=== PATIENT | female | born 1965 | race Caucasian/White ===

== ENCOUNTER 2020-08-14 11:05 | Emergency (ER) | payer SELFPAY ==
[~2020-08-14] VITALS: Ht 167.6 cm; Wt 90.7 kg
[2020-08-14 12:18] LABS: BASOPHILS % (AUTO) 0.5 % (0.0-5.0); EOSINOPHILS % (AUTO) 2.5 % (0.0-8.0); HEMATOCRIT 37.4 % (36-48); LYMPHOCYTES % (AUTO) 30.8 % (21.0-51.0); MEAN CORPUSCULAR HEMOGLOBIN 32.5 pg (27.0-33.0); MEAN CORPUSCULAR HGB CONC 32.9 g/dL (32.0-36.0); MEAN CORPUSCULAR VOLUME 98.9 fL (79-99); NEUTROPHILS % (AUTO) 57.7 % (40.0-77.0); PLATELET COUNT (AUTO) 146 K/uL (130-400); RED BLOOD CELL COUNT(AUTO) 3.78 MIL/uL (4.00-5.50); RED CELL DISTRIBUTION WIDTH 12.7 % (11.0-15.5); WHITE BLOOD COUNT (AUTO) 6.5 K/uL (4.8-10.8)
[2020-08-14 12:35] LABS: INR 1.1 (0.85-1.15); PROTHROMBIN TIME 11.9 SEC (9.6-11.6)
[2020-08-14 12:36] LABS: CARBON DIOXIDE 25 mmol/L (21-32); CHLORIDE 102 mmol/L (101-111); GLOMERULAR FILTR. RATE CALC 61 mL/min (>60); GLUCOSE,RANDOM 133 mg/dL (70-105); PARTIAL THROMBOPLASTIN TIME 25.6 SEC (26.3-35.5); POTASSIUM 4.4 mmol/L (3.5-5.1); SODIUM SERUM 139 mmol/L (136-145); UREA NITROGEN, BLOOD 13 mg/dL (7-18)
[2020-08-14 12:54] LABS: ALANINE AMINOTRANSFERASE 147 U/L (12-78); ALBUMIN 3.6 g/dL (3.5-5.0); ASPARTATE AMINOTRANSFERASE 154 U/L (10-37); BILIRUBIN,TOTAL 0.4 mg/dL (0.2-1.0); CREATINE KINASE, TOTAL 62 U/L (21-232); MYOGLOBIN 26 ng/mL (10-92); TOTAL PROTEIN, SERUM 8.2 g/dL (6.0-8.3); TROPONIN I < 0.04 ng/mL (0.00-0.06)
[2020-08-14 13:00] VITALS: BP 124/81
[2020-08-14] MEDS ORDERED: NAPR-1180 PO (13:30)
[2020-08-14] MEDS ORDERED: CYCL10 PO (13:30)
[2020-08-14] MEDS ORDERED: ALBU8.5H8 IH (13:30)
== END 2020-08-14 13:45 | disposition home or self-care (01) ==
LOC: EDH 11:05
DX: M94.0 Chondrocostal junction syndrome [Tietze] (principal); R06.02 Shortness of breath; I10 Essential (primary) hypertension; E78.5 Hyperlipidemia, unspecified; Z88.0 Allergy status to penicillin
CPT/HCPCS: 36415; 71045; 80053; 82550; 83874; 84484; 85025; 85610; 85730; 93005

== ENCOUNTER 2021-08-11 14:23 | Emergency (ER) | payer OTHER, SELFPAY ==
[~2021-08-11] VITALS: Ht 167.6 cm; Wt 89.8 kg
[~2021-08-11 14:23] MED LIST: ALBU8.5H8 IH; CYCL10TA16 PO; NAPR-1180 PO
[2021-08-11 14:25] VITALS: BP 139/74
[2021-08-11] MEDS ORDERED: KETOROLAC 30MG VIAL (30MG/ML) IM ONE (15:30)
[2021-08-11] MEDS ORDERED: IBUP-2070 PO (16:33)
[2021-08-11] MEDS ORDERED: PRED20TA3 PO (16:33)
[2021-08-11] MEDS ORDERED: PREDNISONE 20 MG TABLET PO ONE (17:00)
== END 2021-08-11 16:55 | disposition home or self-care (01) ==
LOC: EDH 14:23
DX: M25.511 Pain in right shoulder (principal); I48.91 Unspecified atrial fibrillation; E78.00 Pure hypercholesterolemia, unspecified; I10 Essential (primary) hypertension; Z88.0 Allergy status to penicillin; Z79.899 Other long term (current) drug therapy; W01.0XXA Fall on same level from slipping, tripping and stumbling without subsequent striking against object, initial encounter; Y93.89 Activity, other specified; Y92.89 Other specified places as the place of occurrence of the external cause; Y99.8 Other external cause status
CPT/HCPCS: 73030; 73060; 96372; 99284; J1885